=== PATIENT | female | born 1960 | race Caucasian/White ===

== ENCOUNTER 2018-06-13 05:51 | Emergency (ER) | payer SELFPAY ==
[2018-06-13] MEDS ORDERED: SODIUM CHLORIDE 0.9% (FLUSH) 10 ML SYG IV PRN (06:02)
--- NOTE | 2018-06-13 06:35 | RAD ---
EXAM DESCRIPTION: Chest,1 View CLINICAL HISTORY: 58 years Female trouble breathing COMPARISON: None TECHNIQUE: A single frontal projection of the chest is obtained. FINDINGS: Heart: Allowing for magnification factors related to AP portable technique and large body habitus , heart is borderline enlarged status post previous coronary artery bypass surgery. There are sternal wires consistent with previous sternotomy incision.. Vasculature: The aorta is unremarkable. Pulmonary vascularity is upper limits of normal. Mediastinum: Unremarkable otherwise. No evidence of mass or adenopathy. Lungs: There is no focal consolidation in the lungs. Minimal discoid atelectasis or scarring in the right lower lung is noted. Pleural spaces: There are no pleural effusions. There are no pneumothoraces. Osseous structures: The osseous structures show no discernible acute fractures or areas of osseous destruction or blastic change, although assessment of the spine is limited by underpenetration. [] Tubes and catheters: None. Upper abdomen: No acute findings. [] Other: [] . IMPRESSION: Borderline cardiomegaly without gross congestive heart failure. [] Remainder of findings as described above. Electronically signed by: Raquel Sutherland MD 06/13/2018 6:33 AM SEWER SYSTEM SUPERVISOR
--- NOTE | 2018-06-13 06:48 | ED.PDOC ---
History of Present Illness - General Source: patient, RN notes reviewed, Vital Signs reviewed Additional Information: 58 YEAR OLD HERE FOR EVALUATION OF LEFT SIDED NUMBNESS AND WEAKNESS THAT STARTED AT 3 PM YESTERDAY THE SYMPTOMS ARE GRADUALLY GETTING MORE NOTICEABLE THIS MORNING WHEN SHE WAS WALKING TOT HE BATHROOM SHE FELT SHE HAS TO DRAG HER LEFT LOWER EXTREMITY AND STARTED USING A CANE SHE FELT SHE MAY FALL SHE IS ON ASPIRIN A DAY AFTER RECEIVING A BOVINE AORTIC VALVE LAST YEAR SHE HAS NO KNOWN CARDIAC ARRYTHMIA SHE HAS NO KNOWN DM HTN OR HYPERLIPIDEMIA - History of Present Illness Severity: moderate Associated Symptoms: paresthesia, trouble walking <Yojana Krause - Last Filed: 06/13/18 06:41> <Clayton Bradley - Last Filed: 06/13/18 09:02> - General Chief Complaint: Neuro Symptoms/Deficits Stated Complaint: possible stroke Time Seen by Provider: 06/13/18 06:41 - History of Present Illness Allergies/Adverse Reactions: Allergies Sulfamethoxazole w/Trimethoprim [From Bactrim] Adverse Reaction (Verified 06/13/18 06:02) Home Medications: Ambulatory Orders Aspirin [Aspirin Adult Low Dose] 81 mg PO DAILY 06/13/18 Cetirizine HCl [ZyrTEC] 10 mg PO DAILY 06/13/18 Review of Systems - Review of Systems Constitutional: States: no symptoms reported EENTM: States: no symptoms reported Respiratory: States: no symptoms reported Cardiology: States: see HPI Gastrointestinal/Abdominal: States: no symptoms reported Genitourinary: States: no symptoms reported Musculoskeletal: States: no symptoms reported Skin: States: no symptoms reported Neurological: States: see HPI Endocrine: States: no symptoms reported Hematologic/Lymphatic: States: no symptoms reported <Yojana Krause - Last Filed: 06/13/18 06:41> Past Medical History (General) - Patient Medical History Hx Seizures: No Hx Stroke: No Hx Dementia: No Hx Asthma: No Hx of COPD: No Hx Cardiac Disorders: Yes - Heart valve replacement Hx Congestive Heart Failure: No Hx Pacemaker: No Hx Hypertension: No Hx Thyroid Disease: No Hx Diabetes: No Hx Gastroesophageal Reflux: No Hx Renal Disease: No Hx of HIV: No Hx MRSA: No Surgical History: cholecystectomy, Hysterectomy, other - Vaccination History Hx Tetanus, Diphtheria Vaccination: No Hx Influenza Vaccination: No - Social History Hx Tobacco Use: No Hx Alcohol Use: Yes - occ <Yojana Krause Daniel Last Filed: 06/13/18 06:41> Family Medical History - Family History Father Hx Family Cancer: Yes <Yojana Krause Last Filed: 06/13/18 06:41> Physical Exam - Physical Exam General Appearance: Alert, Comfortable Eye Exam: bilateral normal ENT Exam: normal ENT inspection, hearing grossly normal, TMs normal, pharynx normal, nasal congestion Neck: non-tender, full range of motion, supple, normal inspection Respiratory: chest non-tender, lungs clear, normal breath sounds, no respiratory distress Cardiovascular/Chest: normal peripheral pulses, regular rate, rhythm, no edema, no gallop, no JVD, no murmur Peripheral Pulses: radial,right: 2+, radial,left: 2+, femoral,right: 2+, femoral,left: 2+ Gastrointestinal/Abdominal: normal bowel sounds, non tender, soft, no organomegaly, no pulsatile mass Extremities Exam: non-tender, no edema Mental Status: alert, oriented x 3 ironworker Exam: normal hearing, normal speech, PERRL, facial paresthesias Motor/Sensory: positive Babinski's sign, weak motor strength LUE, weak motor strength LLE DTR: 2+: Biceps, right, Triceps, right, Brachioradialis, right, Achilles, left, Patellar, left, Patellar, right, 3+: Biceps, left, Triceps, left, Brachioradialis, left, Achilles, right Skin Exam: normal color, warm/dry <Yojana Krause Daniel Last Filed: 06/13/18 06:41> Progress - EKG/XRAY/CT CT Ordered: Yes <Yojana Krause Daniel Last Filed: 06/13/18 06:41> Stroke Information - Onset of Symptoms Stroke Onset of Symptoms Date: 06/12/18 Stroke Onset of Symptoms Time: 15:00 <Yojana Krause - Last Filed: 06/13/18 06:41> Departure <Yojana Krause - Last Filed: 06/13/18 06:41> <Clayton Bradley - Last Filed: 06/13/18 09:02> - Departure Clinical Impression: Stroke-like symptoms Disposition: Discharge to Home or Self Care Condition: Fair Departure Forms: ED Discharge - Pt. Copy, Patient Portal Self Enrollment Home Medications: Ambulatory Orders Aspirin [Aspirin Adult Low Dose] 81 mg PO DAILY 06/13/18 Cetirizine HCl [ZyrTEC] 10 mg PO DAILY 06/13/18 Transfer to Outside Facility - Transfer Information Accepting Provider:: Dr Dean Accepting Facility: [facility] Reason for Transfer: required specialist not available - Stroke workup <Clayton Bradley - Last Filed: 06/13/18 09:02>
--- NOTE | 2018-06-13 07:45 | CT ---
EXAM: CTA BRAIN WITH CONTRAST, CT HEAD WITHOUT CONTRAST DATE: 06/13/2018 6:43 AM VAPOR COATER INDICATION: Stroke TECHNIQUE Rapid acquisition spiral images were obtained before and after the intravenous administration of contrast. 3D MIP reconstructions were performed. DLP: 792 mGy-cm This exam was performed according to our departmental dose-optimization program, which includes automated exposure control, adjustment of the mA and/or kV according to patient size and/or use of iterative reconstruction technique. COMPARISON: CT head without contrast on the same date CT HEAD WITHOUT CONTRAST: There is no hemorrhage, midline shift, herniation, hydrocephalus, or extra-axial fluid collection. There is a left frontal calcified meningioma that measures approximately 1.8 x 1.2 cm. The solorio-white matter differentiation is preserved. The paranasal sinuses and mastoid air cells are clear. There is no acute fracture. CTA BRAIN: Distal Internal carotid arteries: Normal course, caliber, and contour without atherosclerosis or stenosis [place]: Standard configuration without proximal stenosis or aneurysm. Anterior cerebral arteries: No focal stenosis or aneurysm. Middle cerebral arteries: No focal stenosis or aneurysm Posterior cerebral arteries: No focal stenosis or aneurysm. Vertebrobasilar circulation: The intradural vertebral arteries, basilar artery, and all cerebellar branches are patent without focal stenosis or aneurysm. Veins: The major dural venous sinus, cortical and deep cerebral veins are patent. Paranasal sinuses: Clear IMPRESSION: 1. No major branch occlusion, flow limiting stenosis, or aneurysm is identified intracranially. 2. No intracranial hemorrhage. 3. Left frontal meningioma. Electronically signed by: Shaw Tran MD 06/13/2018 7:44 AM VAPOR COATER Workstation: [id number]
--- NOTE | 2018-06-13 07:45 | CT ---
EXAM: CTA BRAIN WITH CONTRAST, CT HEAD WITHOUT CONTRAST DATE: 06/13/2018 6:43 AM OFFSET PRINTING OPERATOR INDICATION: Stroke TECHNIQUE Rapid acquisition spiral images were obtained before and after the intravenous administration of contrast. 3D MIP reconstructions were performed. DLP: 792 mGy-cm This exam was performed according to our departmental dose-optimization program, which includes automated exposure control, adjustment of the mA and/or kV according to patient size and/or use of iterative reconstruction technique. COMPARISON: CT head without contrast on the same date CT HEAD WITHOUT CONTRAST: There is no hemorrhage, midline shift, herniation, hydrocephalus, or extra-axial fluid collection. There is a left frontal calcified meningioma that measures approximately 1.8 x 1.2 cm. The solorio-white matter differentiation is preserved. The paranasal sinuses and mastoid air cells are clear. There is no acute fracture. CTA BRAIN: Distal Internal carotid arteries: Normal course, caliber, and contour without atherosclerosis or stenosis [place]: Standard configuration without proximal stenosis or aneurysm. Anterior cerebral arteries: No focal stenosis or aneurysm. Middle cerebral arteries: No focal stenosis or aneurysm Posterior cerebral arteries: No focal stenosis or aneurysm. Vertebrobasilar circulation: The intradural vertebral arteries, basilar artery, and all cerebellar branches are patent without focal stenosis or aneurysm. Veins: The major dural venous sinus, cortical and deep cerebral veins are patent. Paranasal sinuses: Clear IMPRESSION: 1. No major branch occlusion, flow limiting stenosis, or aneurysm is identified intracranially. 2. No intracranial hemorrhage. 3. Left frontal meningioma. Electronically signed by: Shaw Tran MD 06/13/2018 7:44 AM OFFSET PRINTING OPERATOR Workstation: [id number]
[2018-06-13] MEDS ORDERED: ASPIRIN TABLET 325 MG TAB PO ONE (09:01)
[2018-06-13 09:38] VITALS: BP 154/84; TEMP 98; O2SAT 98
== END 2018-06-13 09:54 | disposition home or self-care (01) ==
LOC: ER 05:51
DX: R20.2 Paresthesia of skin (principal); R53.1 Weakness; Z79.82 Long term (current) use of aspirin; Z95.2 Presence of prosthetic heart valve